=== PATIENT | male | born 1990 | race African-American/Black ===

== ENCOUNTER 2019-05-04 15:28 | Inpatient (IN) | payer MEDICAID ==
[~2019-05-04] VITALS: Ht 185.4 cm; Wt 127.9 kg
[2019-05-04 15:39] VITALS: BP_SYST 157
--- NOTE | 2019-05-04 19:27 | NUR ---
Patient to ER bed 04 to gown for evaluation. Side rails up.
--- NOTE | 2019-05-04 19:36 | NUR ---
Pt ambulates to bed in ER with c/o right leg pain and right foot numb. Pt A&Ox4. Pt states he has had sciatica for years. Pt states he began having numbness in right foor today and right hip pain. Pt states pain is radiating up right leg. Pt states right hip pain as 8/10 and describes pain as burning pain. Pt states his right leg is "stiff and hard to walk." Pt states [facility] prescribed ibuprofen 800mg, flexeril and gabapentin. Pt states no relief with these medications. Will continue to monitor.
--- NOTE | 2019-05-04 19:39 | NUR ---
ER Dr. Mccord at bedside examining patient.
--- NOTE | 2019-05-04 19:50 | NUR ---
Pt off unit to radiology.
[2019-05-04 20:49] LABS: BASOPHILS % (AUTO) 0.4 % (0.0-2.0); EOSINOPHILS # (AUTO) 0.1 K/uL (0.0-0.4); EOSINOPHILS % (AUTO) 0.9 % (0.0-4.0); HEMATOCRIT 42.6 % (36-54); HEMOGLOBIN 13.9 g/dL (14.0-18.0); LYMPHOCYTES # (AUTO) 2.9 K/uL (1.0-5.5); LYMPHOCYTES % (AUTO) 27.7 % (20.5-51.5); MEAN CORPUSCULAR HEMOGLOBIN 27 pg (27-31); MEAN CORPUSCULAR HGB CONC 33 % (32-36); MEAN CORPUSCULAR VOLUME 84 fL (79.0-98.0); MONOCYTES # (AUTO) 0.5 K/uL (0.0-1.0); MONOCYTES % (AUTO) 5.1 % (1.7-9.3); NEUTROPHILS # (AUTO) 6.8 K/uL (1.8-7.7); NEUTROPHILS % (AUTO) 65.9 % (40.0-70.0); PLATELET COUNT (AUTO) 207 K/uL (130-430); RED BLOOD CELL COUNT(AUTO) 5.07 MIL/uL (4.2-6.2); RED CELL DISTRIBUTION WIDTH 13.9 % (9.0-15.0); WHITE BLOOD COUNT (AUTO) 10.4 K/uL (4.8-10.8)
[2019-05-04 21:02] LABS: ANION GAP 7 (5-15); CALCIUM 8.4 mg/dL (8.4-11.0); CHLORIDE 103 mmol/L (98-107); GLUCOSE 87 mg/dL (70-99); POTASSIUM 3.2 mmol/L (3.5-5.1); SODIUM SERUM 139 mmol/L (136-145); UREA NITROGEN, BLOOD 13 mg/dL (8-21)
[2019-05-04 21:15] LABS: ALANINE AMINOTRANSFERASE 23 U/L (12-78); ALBUMIN 3.9 g/dL (3.4-4.8); ASPARTATE AMINOTRANSFERASE 21 U/L (10-37); TOTAL BILIRUBIN 0.4 mg/dL (0.0-1.0)
[2019-05-04 21:16] LABS: GFR AFRICAN AMERICAN 114 mL/min (>90)
--- NOTE | 2019-05-04 21:19 | NUR ---
Pt resting in bed with no complaints. Will continue to monitor.
--- NOTE | 2019-05-04 23:01 | NUR ---
Pt states he is hungry. [place] given to patient. Will continue to monitor.
--- NOTE | 2019-05-04 23:59 | NUR ---
ER Dr. Mccord at bedside explaining results to patient.
[2019-05-05] VITALS (7 sets, daily range): BP systolic 132–165
[2019-05-05] MEDS ORDERED: MULT-1089 PO (00:34)
[2019-05-05] MEDS ORDERED: CYCL-10 PO (00:34)
--- NOTE | 2019-05-05 00:34 | NUR ---
Medication reconciliation completed with information provided by patient. Any prior medication reconciliation on file was reviewed and corrected.
[2019-05-05] MEDS ORDERED: IBUP-1970 PO (00:35)
--- NOTE | 2019-05-05 01:09 | NUR ---
ER Dr. Carrillo at bedside examining patient.
[2019-05-05] MEDS ORDERED: ACETAMINOPHEN 325 MG TABLET PO PRN (02:00)
[2019-05-05] MEDS ORDERED: ALBUTEROL SULFATE 0.083% 2.5 MG/3 ML VIAL.NEB INH PRN (02:00)
[2019-05-05] MEDS ORDERED: HYDROcodone/ACETAMIN 5-325 MG TAB (NORCO/ VICODIN) PO PRN (02:00)
[2019-05-05] MEDS ORDERED: IBUPROFEN 800 MG TABLET PO PRN (02:00)
--- NOTE | 2019-05-05 02:43 | NUR ---
Patient will be admitted to care of Francoise. Admitted to medical surgical unit. Will go to room 129A. Belongings list completed. Complete and up to date summary report printed. SBAR report to be given at bedside with opportunity for questions.
[2019-05-05] MEDS ORDERED: POTASSIUM CHLORIDE 20 MEQ/PKT PACKET PO ONE (03:00)
--- NOTE | 2019-05-05 03:04 | NUR ---
ADMISSION NOTE Received patient from ER via wheelchair, received report from FRANCIS Salgado. Patient admitted with diagnosis of Right foot numbness. Patient oriented to hospital routine, call light, toileting and safety-patient verbalized understanding.
[2019-05-05] MEDS: HYDROcodone/ACETAMIN 10-325 MG TAB PO PRN ×3 (03:37→15:39)
[2019-05-05] MEDS ORDERED: FLU VACC QS2019-20 36MOS UP/PF 60 MCG/0.5 ML SYRINGE I.M. PRN (06:00)
--- NOTE | 2019-05-05 06:48 | NUR ---
CLOSING NOTES Pt is resting in bed with both eyes closed, with visible chest rise and fall with non-labored breathing noted. No complains of pain at this time. No signs of acute distress or SOB noted. All needs attended throughout the shift. Safety precautions in place with 2 side rails up, wheels locked, and bed in lowest level. Call light with pt. Will endorse to day shift nurse.
[2019-05-05] MEDS ORDERED: DEXAMETHASONE SOD PHOSPHATE 4 MG/ML VIAL IVP ONE (07:20)
[2019-05-05] MEDS ORDERED: ROCURONIUM BROMIDE 10 MG/ML (ZEMURON) IV ONE (07:20)
[2019-05-05] MEDS ORDERED: BACITRACIN ZINC 15 GM TOPICAL OINTMENT TP ONE (07:20)
[2019-05-05] MEDS ORDERED: MIDAZOLAM HCL 5 MG/5 ML VIAL IVP ONE (07:20)
[2019-05-05] MEDS ORDERED: CEFAZOLIN 2 GM IVPB PREMIX 50 ML IV ONE (07:20)
[2019-05-05] MEDS ORDERED: GLYCOPYRROLATE 0.2 MG/ML VIAL IJ ONE (07:20)
[2019-05-05] MEDS ORDERED: fentaNYL CITRATE/PF 100 MCG/2 ML AMP IVP ONE (07:20)
[2019-05-05] MEDS ORDERED: NEOSTIGMINE METHYLSULFATE 1 MG/ML, 10 ML VIAL IVP ONE (07:20)
[2019-05-05] MEDS ORDERED: THROMBIN (BOVINE) 5000 UNITS/ VIAL TP ONE (07:20)
[2019-05-05] MEDS ORDERED: SEVOFLURANE 15 MIN GAS INH ONE (07:20)
[2019-05-05] MEDS ORDERED: NS 1000 ML IV.SOLN IV ONE (07:20)
[2019-05-05] MEDS ORDERED: LR 1,000 ML IV.SOLN IV ONE (07:20)
--- NOTE | 2019-05-05 07:40 | NUR ---
INITIAL NOTE RECEIVED PT IN BED, NO S/S OF DISTRESS OR SOB NOTED, PT HAS NO C/O PAIN AT THIS TIME, PT IN STABLE CONDITION, PT RESTING COMFORTABLY, BED AT LOWEST POSITION, CALL LIGHT WITHIN REACH, WILL CONTINUE TO MONITOR PT FOR ANY CHANGES. FALL AND SAFETY PRECAUTIONS IN PLACE. PT AAOX4, VERBAL. BED ALARM ON.
--- NOTE | 2019-05-05 10:10 | NUR ---
ROUNDS PT IN BED, NO S/S OF DISTRESS OR SOB NOTED, PT HAS NO C/O PAIN AT THIS TIME, PT IN STABLE CONDITION, WILL CONTINUE TO MONITOR PT FOR ANY CHANGES.
--- NOTE | 2019-05-05 10:42 | NUR ---
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
--- NOTE | 2019-05-05 10:44 | NUR ---
CONSULTATION PAGED/CALLED Reason for Consultation: [] LUMBAR RADICULOPATHY Person Who was Notified: [] JUAN DAVID Consulting Physician: [] DR MIRELES [employer] Specialty: [] NEUROSURGEON Ordering Physician: [] DR Eneida VALDEZ
--- NOTE | 2019-05-05 11:24 | NUR ---
MD CALL SPOKE WITH DR MIRELES, AWARE OF PATIENT'S CONDITION, NEW ORDERS GIVEN FOR NPO FOR POSSIBLE SURGERY TODAY.
--- NOTE | 2019-05-05 12:55 | NUR ---
ROUNDS PT IN BED, NO S/S OF DISTRESS OR SOB NOTED, PT HAS NO C/O PAIN AT THIS TIME, PT IN STABLE CONDITION, WILL CONTINUE TO MONITOR PT FOR ANY CHANGES. PT RESTING COMFORTABLY.
--- NOTE | 2019-05-05 14:55 | NUR ---
ROUNDS PT IN BED, NO S/S OF DISTRESS OR SOB NOTED, PT HAS NO C/O PAIN AT THIS TIME, PT IN STABLE CONDITION, WILL CONTINUE TO MONITOR PT FOR ANY CHANGES. PT USING HIS CELLPHONE.
--- NOTE | 2019-05-05 18:04 | NUR ---
ROUNDS DR CHI PINTO, AWARE OF PATIENT'S CONDITION. Addendum: 05/05/19 at 1822 by Lisa Cortez RN MD SPOKE WITH PT AND PT WILL NEED TO DECIDE IF HE WILL HAVE SURGERY TOMORROW OR NOT, PT TO BE BACK ON REGULAR DIET
--- NOTE | 2019-05-05 18:22 | NUR ---
CLOSING NOTE PT IN BED, AAOX4, VERBAL. NO S/S OF DISTRESS OR SOB NOTED, PT HAS NO C/O PAIN AT THIS TIME, PT IN STABLE CONDITION, PT RESTING COMFORTABLY, BED AT LOWEST POSITION, CALL LIGHT WITHIN REACH, WILL ENDORSE CARE OF PT TO INCOMING. FALL AND SAFETY PRECAUTIONS IN PLACE. PT HAS AN IV CATHETER PATENT, NO SIGNS OF INFECTION OR INFILTRATION NOTED, SALINE LOCK.
--- NOTE | 2019-05-05 18:53 | NUR ---
MD CALL DR MIRELES PAGED, AWAITING CALL BACK, PER PT HE WANTS TO HAVE SURGERY IN AM.
--- NOTE | 2019-05-05 19:35 | NUR ---
DR MRIELES CALLED BACK AND WITH ORDERS TO PUT THE PATIENT ON REGULAR DIET .NO ORDERS FOR SURGERY YET, PATIENT IS AWARE.
[2019-05-05] MEDS: CYCLOBENZAPRINE HCL 10 MG TABLET (FLEXERIL) PO SCH (21:24)
[2019-05-06] VITALS (7 sets, daily range): BP systolic 126–150
[2019-05-06 06:56] LABS: BASOPHILS # (AUTO) 0.1 K/uL (0.0-0.2); BASOPHILS % (AUTO) 0.9 % (0.0-2.0); EOSINOPHILS # (AUTO) 0.3 K/uL (0.0-0.4); EOSINOPHILS % (AUTO) 3.9 % (0.0-4.0); HEMATOCRIT 41.8 % (36-54); HEMOGLOBIN 13.8 g/dL (14.0-18.0); LYMPHOCYTES # (AUTO) 3.1 K/uL (1.0-5.5); LYMPHOCYTES % (AUTO) 41.5 % (20.5-51.5); MEAN CORPUSCULAR HEMOGLOBIN 28 pg (27-31); MEAN CORPUSCULAR HGB CONC 33 % (32-36); MEAN CORPUSCULAR VOLUME 84 fL (79.0-98.0); MONOCYTES # (AUTO) 0.5 K/uL (0.0-1.0); MONOCYTES % (AUTO) 7.2 % (1.7-9.3); NEUTROPHILS # (AUTO) 3.4 K/uL (1.8-7.7); NEUTROPHILS % (AUTO) 46.5 % (40.0-70.0); PLATELET COUNT (AUTO) 201 K/uL (130-430); RED BLOOD CELL COUNT(AUTO) 4.96 MIL/uL (4.2-6.2); RED CELL DISTRIBUTION WIDTH 13.8 % (9.0-15.0); WHITE BLOOD COUNT (AUTO) 7.3 K/uL (4.8-10.8)
[2019-05-06 07:05] LABS: ALBUMIN 3.3 g/dL (3.4-4.8); CALCIUM 8.1 mg/dL (8.4-11.0); CREATININE 1.05 mg/dL (0.55-1.30); POTASSIUM 3.9 mmol/L (3.5-5.1); TOTAL BILIRUBIN 0.3 mg/dL (0.0-1.0)
--- NOTE | 2019-05-06 07:39 | NUR ---
REPORT GIVEN TO THE DAY SHIFT RN THAT PATIENT NEEDS TO SIGN THE CONSENT FOR THE PROCEDURE THAT DR SARAH ORDERED AND NEEDS TO CLARIFY WHEN THE PATIENT WOULD BE NPO
[2019-05-06] MEDS: HYDROcodone/ACETAMIN 10-325 MG TAB PO PRN ×3 (08:04→21:33)
[2019-05-06 09:26] LABS: INR 1.1 (0.80-1.20); PROTHROMBIN TIME 10.6 SECS (9.5-12.5)
--- NOTE | 2019-05-06 09:27 | NUR ---
PAGED CALLED IKE VOGEL AT [phone] LEFT A VOICEMAIL.
--- NOTE | 2019-05-06 19:10 | NUR ---
initial notes: pt is awake ,alert, oriented x 4. no sob, not distress. complain of pain weakness of both legs.pt has iv lock ti left ac gauge 18- intact and patent. pt is schedule laminectomy, npo after midnight. ambulatory with use of fww. explained plan of care for tonight, pt verbalized understanding. needs attended, call light in reach, side rails up. safety on. will follow-up.
[2019-05-06] MEDS: CYCLOBENZAPRINE HCL 10 MG TABLET (FLEXERIL) PO SCH (21:23)
[2019-05-06 21:46] LABS: BILIRUBIN,URINE NEGATIVE (NEGATIVE); BLOOD, URINE NEGATIVE (NEGATIVE); CLARITY/URINE CLEAR (CLEAR); COLOR,URINE YELLOW (YELLOW); GLUCOSE,URINE NEGATIVE (NEGATIVE); KETONES,URINE NEGATIVE (NEGATIVE); LEUKOCYTE ESTERASE ,URINE NEGATIVE (NEGATIVE); NITRITE, URINE NEGATIVE (NEGATIVE); PH,URINE 6.5 (5.0-8.0); PROTEIN URINE NEGATIVE (NEGATIVE); UROBILINOGEN,URINE 0.2 (0.2-1.0)
--- NOTE | 2019-05-06 22:10 | NUR ---
awake, alert, watching to his cellphone stable, needs attended. will folow-up.
--- NOTE | 2019-05-07 | NUR ---
resting, no pain, stable vital sign. needs attended. call light in reach. safety on.
--- NOTE | 2019-05-07 03:25 | NUR ---
sleeping comfortable. no distress, stable.
--- NOTE | 2019-05-07 04:35 | NUR ---
sleeping, comfortable. no sob, not distress. call light in reach. will follow-up.
--- NOTE | 2019-05-07 05:30 | NUR ---
chg bath given to pt. bed linen change done. pt tolerate well.
--- NOTE | 2019-05-07 07:20 | NUR ---
closing: pt is resting. npo. stable. needs attended. waiting for sx. bed side report given to shanna rn.
[2019-05-07] MEDS ORDERED: POLYMYXIN 500,000/BACIT.10,000 UNITS in NS IRR 1 L IR ONE (07:57)
[2019-05-07] MEDS ORDERED: THROMBIN (BOVINE) 5000 UNITS/ VIAL TP ONE (07:57)
[2019-05-07] MEDS ORDERED: fentaNYL CITRATE/PF 100 MCG/2 ML AMP IVP PRN (08:00)
[2019-05-07] MEDS ORDERED: ONDANSETRON HCL 4 MG/2 ML VIAL IVP PRN ×2 (08:00→09:45)
--- NOTE | 2019-05-07 08:00 | NUR ---
PT TAKEN TO SURGERY BY JENNI FOR LAMINECTOMY
[2019-05-07] MEDS: KCL 20 mEq in D5NS 1000 mL 1,000 ML IV SCH ×2 (09:41→17:41)
[2019-05-07] MEDS ORDERED: ZOLPIDEM TARTRATE 5 MG TABLET PO PRN (09:45)
[2019-05-07] MEDS ORDERED: HYDROmorphone 1 MG INJ. 1 MG/ML AMPUL IVP PRN ×2 (09:45)
[2019-05-07] MEDS ORDERED: METHOCARBAMOL 500 MG TABLET PO PRN (09:45)
[2019-05-07] MEDS ORDERED: BISACODYL 10 MG/SUPPOSITORY RC PRN (09:45)
[2019-05-07] MEDS ORDERED: DIPHENHYDRAMINE HCL 50 MG CAPSULE PO PRN (09:45)
[2019-05-07] MEDS ORDERED: HYDROcodone/ACETAMIN 10-325 MG TAB PO PRN ×2 (09:45)
[2019-05-07] MEDS ORDERED: MILK OF MAGNESIA 30 ML UDC PO PRN (09:45)
[2019-05-07] MEDS: CEFAZOLIN 2 GM IVPB PREMIX 50 ML IV SCH ×2 (10:00→18:50)
[2019-05-07] MEDS: fentaNYL CITRATE/PF 100 MCG/2 ML AMP IVP PRN ×2 (10:28→10:41)
[2019-05-07] MEDS ORDERED: fentaNYL CITRATE/PF 100 MCG/2 ML AMP ONE (10:40)
--- NOTE | 2019-05-07 11:12 | NUR ---
Case Management Spoke with Marce perrin [phone] f [phone]. Faxed requested 24 hour report.
--- NOTE | 2019-05-07 11:30 | NUR ---
RETURNED FROM SURGERY [facility] D[facility] CDI TO BACK CSM GOOD TO EXTREMITIES NO REQUEST FOR PAIN MEDS.TO RESUME DIET.VOIDS PER URINAL RESP EVEN AND UNLABORED CONTINUE TO MONITOR.
[2019-05-07 12:00] VITALS: BP_SYST 130
[2019-05-07] MEDS: HYDROmorphone 2 MG/ML VIAL IVP PRN ×2 (13:33→19:05)
[2019-05-07 16:00] VITALS: BP_SYST 128
[2019-05-07 20:00] VITALS: BP_SYST 155
[2019-05-07] MEDS: DOCUSATE SODIUM 100 MG CAPSULE PO SCH (21:00)
[2019-05-07] MEDS: CYCLOBENZAPRINE HCL 10 MG TABLET (FLEXERIL) PO SCH (22:08)
[2019-05-08 00:11] VITALS: BP_SYST 144
[2019-05-08] MEDS: KCL 20 mEq in D5NS 1000 mL 1,000 ML IV SCH (01:41)
[2019-05-08] MEDS: CEFAZOLIN 2 GM IVPB PREMIX 50 ML IV SCH (03:27)
[2019-05-08] MEDS: HYDROmorphone 2 MG/ML VIAL IVP PRN ×3 (06:31→16:15)
[2019-05-08 08:00] VITALS: BP_SYST 161
--- NOTE | 2019-05-08 08:00 | NUR ---
initial notes rec patient sitting at bedside and with ivf infusing well on thjje r forearm. no infiltration noted. dressingon the lower back prominent on the r side intact. no bleeding noted. bed to the lowest positin and side rails up and locked.no sob noted.
[2019-05-08] MEDS: DOCUSATE SODIUM 100 MG CAPSULE PO SCH (09:00)
[2019-05-08 11:07] VITALS: BP_SYST 143
--- NOTE | 2019-05-08 13:49 | NUR ---
PHYSICAL THERAPY CO-SIGN The Physical Therapy Progress Notes documented by Registration Coordinator have been reviewed. Reviewed/Co-Signed by: Nehemiah Keller PT Documentation Done by: ALVARO MORENO PTA Addendum: 05/08/19 at 1350 by Nehemiah Keller PT Amended: Links added.
[2019-05-08 15:04] VITALS: BP_SYST 139
--- NOTE | 2019-05-08 15:11 | NUR ---
PAGED PAGED IKE VOGEL AT [phone] SPOKE WITH ROBERT.
--- NOTE | 2019-05-08 16:33 | NUR ---
PAGED PAGED IKE VOGEL AT [phone] SPOKE WITH SANDRO.
--- NOTE | 2019-05-08 16:33 | NUR ---
Driver/Sales Workers: Rn., Malgorzata asked REVENUE FIELD AGENT to write a note for pts. employer [employer]ENT gathered info, wrote a letter and gave to pt. Pt. asked REVENUE FIELD AGENT to include info re. when pt. can return to work. REVENUE FIELD AGENT directed him to speak to his for that info. Pt. stated he will call office. REVENUE FIELD AGENT will remain available as needed.
[2019-05-08 16:56] VITALS: BP_SYST 139
--- NOTE | 2019-05-08 17:09 | NUR ---
PAGED PAGED .IKE AT [phone] SPOKE WITH ALDEN.
[2019-05-08 17:49] VITALS: BP_SYST 139
--- NOTE | 2019-05-08 18:15 | NUR ---
closing notes pt was discharged with pt's father. no osb noted. ivl and id band was removed. no sob noted.instructed re anitha with dr rubalcava on . denies pain at this time. awaiting for dr rubalcava to call for pain med prescription otherwise will go home and continue pain med prescribed on med rec.
== END 2019-05-08 18:15 | disposition home or self-care (01) | DRG 23 ==
LOC: SED 15:28 → STU 05-05 00:53 → SMU 05-05 00:54
PROVIDERS: ADMIT Internal Medicine Hospice and Palliative Medicine; ATTEND Internal Medicine Hospice and Palliative Medicine
PROC: 0SB20ZZ Excision of Lumbar Vertebral Disc, Open Approach (ICD-10-PCS; 2019-05-07)
PROC: 00NY0ZZ Release Lumbar Spinal Cord, Open Approach (ICD-10-PCS; principal; 2019-05-07 07:15)
DX: G95.89 Other specified diseases of spinal cord (principal); E66.01 Morbid (severe) obesity due to excess calories; M51.16 Intervertebral disc disorders with radiculopathy, lumbar region; M48.061 Spinal stenosis, lumbar region without neurogenic claudication; G89.29 Other chronic pain; M21.379 Foot drop, unspecified foot; I10 Essential (primary) hypertension; Z68.37 Body mass index [BMI] 37.0-37.9, adult; Z79.899 Other long term (current) drug therapy; Z88.0 Allergy status to penicillin
CPT/HCPCS: 36415; 70450-TC; 72131; 72148; 76001; 80053; 81003; 84484; 85025; 85610-TC; 85730-TC; 87081; 93005; 97110-GP; 97530-GP; 99285; J0690; J1100; J1170; J2250; J2710; J3010; J3490; J7030; J7120

== ENCOUNTER 2020-12-12 06:59 | Emergency (ER) | payer MEDICAID, OTHER ==
[~2020-12-12] VITALS: Ht 188 cm; Wt 127.0 kg
[~2020-12-12 06:59] MED LIST: CYCL-10 PO; IBUP-1970 PO; MULT-1089 PO
[2020-12-12 07:00] VITALS: BP_SYST 154
[2020-12-12] MEDS ORDERED: KETOROLAC TROMETHAMINE 60 MG/2 ML VIAL IM ONE (07:30)
[2020-12-12] MEDS ORDERED: TRAM50TA2 PO (07:31)
[2020-12-12] MEDS ORDERED: METH-634 PO (07:31)
[2020-12-12 07:41] VITALS: BP_SYST 149
== END 2020-12-12 07:40 | disposition home or self-care (01) ==
LOC: SED 06:59
DX: M54.5 Low back pain (principal); I10 Essential (primary) hypertension; Z88.0 Allergy status to penicillin; Z79.899 Other long term (current) drug therapy
CPT/HCPCS: 96372; 99283; J1885